=== PATIENT | female | born 1995 | race Caucasian/White ===

== ENCOUNTER 2019-04-17 02:35 | Inpatient (IN) | payer OTHER ==
[2019-04-17] MEDS ORDERED: OXYTOCIN 30 UNITS/LR 500 ML IV ×2 (03:30→10:30)
[2019-04-17] MEDS ORDERED: METHYLERGONOVINE 0.2 MG INJ IM ×2 (03:30→10:30)
[2019-04-17] MEDS ORDERED: MISOPROSTOL 200 MCG TAB PR ×2 (03:30→10:30)
[2019-04-17] MEDS ORDERED: LIDOCAINE 1% (MPF) 30 ML INJ INJ (03:30)
[2019-04-17] MEDS ORDERED: CARBOPROST 250 MCG INJ IM ×2 (03:30→10:30)
[2019-04-17] MEDS: BUTORPHANOL 2 MG INJ IV (04:30)
[2019-04-17] MEDS: LACTATED RINGER'S 1,000 ML IV ×3 (04:34→05:38)
[2019-04-17 04:46] LABS: ADD MAN DIFF? NO
[2019-04-17 04:51] LABS: WHITE BLOOD COUNT 13.1 10^3/ul (4.8-10.8)
[2019-04-17 04:51] LABS: BASOPHIL # 0.1 10^3/ul (0.0-0.1); BASOPHILS % 0.4 % (0.0-2.0); EOSINOPHILS # 0.2 10^3/ul (0.0-0.5); EOSINOPHILS % 1.6 % (0.0-7.0); HEMATOCRIT 37.9 % (37.0-47.0); HEMOGLOBIN 12.4 g/dl (12.0-16.0); LYMPHOCYTES # 1.9 10^3/ul (0.8-2.9); LYMPHOCYTES % 14.3 % (15.0-51.0); MEAN CORPUSCULAR HEMOGLOBIN 26.7 pg (29.0-33.0); MEAN CORPUSCULAR HGB CONC 32.7 g/dl (32.0-37.0); MEAN CORPUSCULAR VOLUME 81.7 fl (82.0-101.0); MEAN PLATELET VOLUME 13.2 fl (7.4-10.4); MONOCYTE # 0.9 10^3/ul (0.3-0.9); MONOCYTES % 7.1 % (0.0-11.0); NEUTROPHIL # 9.9 10^3/ul (1.6-7.5); PLATELET COUNT 154 10^3/UL (140-415); RED BLOOD COUNT 4.64 10^6/ul (4.20-5.40); RED CELL DISTRIBUTION WIDTH 15.2 % (11.5-14.5)
[2019-04-17 05:14] LABS: INR 0.94; PROTIME 12.7 Sec (11.9-14.9)
[2019-04-17 05:15] LABS: PARTIAL THROMBOPLASTIN TIME 31.5 Sec (23.0-35.0)
[2019-04-17] MEDS ORDERED: HYDROmorphONE 0.5 MG/0.5 ML SYG IV ×2 (05:30)
[2019-04-17] MEDS ORDERED: FENTAnyl 2MCG/ML-ROPIV 0.2% 100 ML BAG EPI (05:30)
[2019-04-17] MEDS ORDERED: DIPHENHYDRAMINE 50 MG INJ IV (05:30)
[2019-04-17] MEDS ORDERED: KETOROLAC 30 MG INJ IV (05:30)
[2019-04-17] MEDS ORDERED: NALOXONE (0.4 MG/ML) INJ IV (05:30)
[2019-04-17 05:54] LABS: HEPATITIS B SURFACE ANTIGEN NEGATIVE (NEGATIVE)
[2019-04-17] MEDS: ONDANSETRON 4 MG INJ IV (08:29)
[2019-04-17 10:07] LABS: AMPHETAMINE/METHAMPHETAMINE Negative (NEGATIVE); BARBITURATES Negative (NEGATIVE); BENZODIAZEPINES Negative (NEGATIVE); CANNABINOIDS Positive (NEGATIVE); COCAINE Negative (NEGATIVE); OPIATES Negative (NEGATIVE)
[2019-04-17] MEDS: OXYTOCIN 30 UNITS/LR 500 ML IV ×3 (10:17→10:21)
[2019-04-17] MEDS ORDERED: BENZOCAINE 20% 56 ML SPRAY TOP (10:30)
[2019-04-17] MEDS ORDERED: NACL 0.9% 3 ML SYG IV (10:30)
[2019-04-17] MEDS ORDERED: ONDANSETRON 4 MG INJ IV (10:30)
[2019-04-17] MEDS ORDERED: ACETAMINOPHEN 325 MG TAB PO (10:30)
[2019-04-17] MEDS ORDERED: OXYCODONE/ASPIRIN (4.88/325) TAB PO (10:30)
[2019-04-17] MEDS ORDERED: WITCH HAZEL/GLYCERIN PAD PR (10:30)
[2019-04-17] MEDS: IBUPROFEN 600 MG TAB PO ×2 (12:00→17:52)
[2019-04-17 19:59] LABS: RAPID PLASMA REAGIN NONREACTIVE (NR)
[2019-04-17] MEDS: SENNA/DOCUSATE NA (8.6MG/50MG) TAB PO (21:32)
[2019-04-18] MEDS: IBUPROFEN 600 MG TAB PO ×4 (00:10→18:12)
[2019-04-18] MEDS: LANOLIN HPA 1 PKT TOP (00:10)
[2019-04-18 09:40] LABS: ADD MAN DIFF? NO
[2019-04-18 09:44] LABS: ABNORMAL IP MESSAGE 1; BASOPHIL # 0.1 10^3/ul (0.0-0.1); BASOPHILS % 0.5 % (0.0-2.0); EOSINOPHILS # 0.3 10^3/ul (0.0-0.5); EOSINOPHILS % 3.1 % (0.0-7.0); HEMATOCRIT 35.5 % (37.0-47.0); HEMOGLOBIN 11.1 g/dl (12.0-16.0); LYMPHOCYTES # 1.8 10^3/ul (0.8-2.9); LYMPHOCYTES % 16.8 % (15.0-51.0); MEAN CORPUSCULAR HEMOGLOBIN 26.5 pg (29.0-33.0); MEAN CORPUSCULAR HGB CONC 31.3 g/dl (32.0-37.0); MEAN CORPUSCULAR VOLUME 84.7 fl (82.0-101.0); MEAN PLATELET VOLUME 13.8 fl (7.4-10.4); MONOCYTE # 0.7 10^3/ul (0.3-0.9); MONOCYTES % 6.6 % (0.0-11.0); NEUTROPHIL # 7.9 10^3/ul (1.6-7.5); NEUTROPHILS % 72.5 % (39.0-77.0); PLATELET COUNT 116 10^3/UL (140-415); RED BLOOD COUNT 4.19 10^6/ul (4.20-5.40)
[2019-04-18 09:44] LABS: WHITE BLOOD COUNT 10.8 10^3/ul (4.8-10.8)
[2019-04-18 09:47] LABS: POSITIVE DIFF @See below
[2019-04-18] MEDS: SENNA/DOCUSATE NA (8.6MG/50MG) TAB PO ×2 (11:54→21:00)
[2019-04-19] MEDS: IBUPROFEN 600 MG TAB PO ×3 (00:19→11:59)
[2019-04-19] MEDS: OXYCODONE/ASPIRIN (4.88/325) TAB PO (09:01)
[2019-04-19] MEDS: SENNA/DOCUSATE NA (8.6MG/50MG) TAB PO (09:01)
== END 2019-04-19 14:25 | disposition home or self-care (01) | DRG 807 ==
LOC: OBT 02:35 → L-D 02:35 → OBT 03:20 → L-D 03:20 → PP1 15:18
PROVIDERS: Obstetrics & Gynecology
PROC: 10E0XZZ Delivery of Products of Conception, External Approach (ICD-10-PCS; principal; 2019-04-17)
DX: O80 Encounter for full-term uncomplicated delivery (principal); Z37.0 Single live birth; Z3A.38 38 weeks gestation of pregnancy
CPT/HCPCS: 76815; 80307; 85025; 85610; 85730; 86592; 86850; 86900; 86901; 87340; 99464